=== PATIENT | male | born 2000 | race Hispanic/Latino ===

== ENCOUNTER 2024-09-27 23:42 | Emergency (ER) | payer SELFPAY ==
[~2024-09-27] VITALS: Ht 175.3 cm; Wt 59.9 kg
[2024-09-27 23:44] VITALS: BP 117/77; PULSE 71; RESP 20; TEMP 98.2
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
--- NOTE | 2024-09-28 01:03 | HMCIMG ---
HAND 3+VWS RT HISTORY: Trauma COMPARISON: None TECHNIQUE: 3 images of right hand were obtained. FINDINGS: Irregularity is seen involving the base of the fifth metacarpal bone suggestive of fracture of indeterminate age. Soft tissue swelling is seen. Degenerative changes are seen. IMPRESSION: 1. Findings as described above.
[2024-09-28] MEDS: ibuPROFEN 600 MG TABLET PO ONE (01:40)
--- NOTE | 2024-09-28 01:51 | NUR ---
BOXERS SPLINT APPLIED TO R HAND
== END 2024-09-28 01:52 | disposition home or self-care (01) ==
LOC: EDH 23:42
DX: S62.316A Displaced fracture of base of fifth metacarpal bone, right hand, initial encounter for closed fracture (principal); X58.XXXA Exposure to other specified factors, initial encounter; Y93.89 Activity, other specified; Y92.89 Other specified places as the place of occurrence of the external cause; Y99.8 Other external cause status
CPT/HCPCS: 29125; 73130; 99283